=== PATIENT | female | born 1990 | race African-American/Black ===

== ENCOUNTER 2021-04-10 00:25 | Emergency (ER) | payer OTHER ==
[2021-04-10 01:10] LABS: Bilirubin Neg (Negative); Blood, Urine Negative (Negative); Clarity Clear (Clear); Glucose, Urine (Dipstick) Normal (Negative); Ketone, Urine Negative (Negative); Leukocyte 100 (Negative); Nitrite Negative (Negative); Protein, Urine (Dipstick) 15 mg/dl (Neg-Trace); Urobilinogen Normal mg/dL (Less than 2)
[2021-04-10 01:17] LABS: Pregnancy Test - Urine (BHCG) Negative (Negative); Pregu Control Background? CLEAR/WHITE (CLR/WHITE); Pregu Control Bar Appear? YES (CONTROL BAR)
[2021-04-10 01:25] LABS: Bacteria/HPF Rare-Few HPF (None Seen); RBC/HPF 0-3 HPF (0-3)
[2021-04-10 19:11] LABS: Chlamydia by PCR Not Detected (NotDetected); GC by PCR Not Detected (NotDetected)
== END 2021-04-10 01:40 | disposition home or self-care (01) ==
LOC: CSHERS 00:25
DX: N76.0 Acute vaginitis (principal)
CPT/HCPCS: 81003; 81015; 81025; 87480; 87491; 87510; 87591; 87660; 99283

== ENCOUNTER 2021-09-23 17:31 | Emergency (ER) | payer MEDICAID, OTHER ==
[2021-09-23 18:37] LABS: Bilirubin Neg (Negative); Blood, Urine Negative (Negative); Clarity Clear (Clear); Glucose, Urine (Dipstick) Normal (Negative); Ketone, Urine Negative (Negative); Leukocyte Negative (Negative); Nitrite Negative (Negative); Protein, Urine (Dipstick) Negative (Neg-Trace); Specific Gravity, Urine 1.015 (1.002-1.036); Urobilinogen Normal mg/dL (Less than 2)
[2021-09-23 18:38] LABS: Pregnancy Test - Urine (BHCG) Negative (Negative); Pregu Control Background? CLEAR/WHITE (CLR/WHITE); Pregu Control Bar Appear? YES (CONTROL BAR); Specific Gravity 1.015 (1.002-1.036)
[2021-09-23] MEDS ORDERED: Fluconazole 100 MG TAB PO SCH (20:00)
== END 2021-09-23 19:11 | disposition home or self-care (01) ==
LOC: CSHERS 17:31
DX: B37.3 Candidiasis of vulva and vagina (principal)
CPT/HCPCS: 81003; 81025; 99283

== ENCOUNTER 2022-09-05 15:48 | Emergency (ER) | payer OTHER | END 2022-09-05 16:37 | disposition home or self-care (01) | LOC: CSHERS 15:48 | DX: H60.91 Unspecified otitis externa, right ear (principal) | CPT/HCPCS: 99282 ==

== ENCOUNTER 2022-09-12 20:43 | Emergency (ER) | payer OTHER | END 2022-09-12 22:51 | disposition home or self-care (01) | LOC: CSHERS 20:43 | DX: O99.712 Diseases of the skin and subcutaneous tissue complicating pregnancy, second trimester (principal); L25.9 Unspecified contact dermatitis, unspecified cause; Z3A.14 14 weeks gestation of pregnancy | CPT/HCPCS: 99282 ==

== ENCOUNTER 2024-01-29 08:37 | Emergency (ER) | payer OTHER ==
[2024-01-29] MEDS ORDERED: Dexamethasone 10 MG/ML VIAL ONE (10:34)
[2024-01-29] MEDS ORDERED: Ibuprofen 200 MG TAB ONE (10:43)
== END 2024-01-29 11:05 | disposition home or self-care (01) ==
LOC: CSHERS 08:37
DX: J02.9 Acute pharyngitis, unspecified (principal); B97.89 Other viral agents as the cause of diseases classified elsewhere
CPT/HCPCS: 87081; 87428; 87430; 96372; 99282; J1100

== ENCOUNTER 2024-10-26 23:42 | Emergency (ER) | payer SELFPAY ==
[2024-10-27] MEDS ORDERED: Lidocaine Viscous Sol 2% 15 ml UD Cup ONE (00:11)
== END 2024-10-27 01:00 | disposition home or self-care (01) ==
LOC: CSHERS 23:42
DX: H61.23 Impacted cerumen, bilateral (principal)
CPT/HCPCS: 99282

== ENCOUNTER 2024-10-29 22:55 | Emergency (ER) | payer SELFPAY | END 2024-10-29 23:37 | disposition home or self-care (01) | LOC: CSHERS 22:55 | DX: R42 Dizziness and giddiness (principal); H61.23 Impacted cerumen, bilateral; R29.700 NIHSS score 0 | CPT/HCPCS: 99283 ==

== ENCOUNTER 2024-12-16 12:04 | Emergency (ER) | payer SELFPAY | END 2024-12-16 12:49 | disposition home or self-care (01) | LOC: CSHERS 12:04 | DX: L30.0 Nummular dermatitis (principal) | CPT/HCPCS: 99282 ==